=== PATIENT | male | born 1965 | race Caucasian/White ===

== ENCOUNTER 2018-01-07 21:04 | Emergency (ER) | payer OTHER ==
[~2018-01-07 21:04] MED LIST: ACETAMINOPHEN-H1 TA2 PO; BIAXIN500 MG PO; BP PILL; CLINDAMYCIN150 MG PO; HYDROCODONE BIT1 T11 PO; KEFLEX500 MG PO; LEVAQUIN750 M1 PO; LISINOPRIL10 M1 PO; MULTI VITAMINS1 TAB PO; Motrin,Rufen800 MG PO; NKHM; PRAVACHOL20 MG PO; PRILOSEC20 M2 PO; VICODIN 5-3001 EACH PO; VICODIN 5/500 505 MG PO; VITAMIN D50000 I3 PO
[2018-01-07 21:37] LABS: BASO # 0.1 10*3/uL (0.0-0.1); BASO % 0.4 % (0.0-1.0); EOS # 0.1 10*3/uL (0.0-0.4); EOS % 0.5 % (1.0-4.0); HEMOGLOBIN 13.1 g/dl (14.0-18.0); LYMPH # 1.3 10*3/uL (1.3-4.4); LYMPH % 9.7 % (27.0-41.0); MEAN CELL VOLUME 92.9 fl (80.0-94.0); MEAN CORPUSCULAR HGB CONC 34.5 g/dl (33.0-37.0); MEAN PLATELET VOLUME 9.1 fl (9.6-12.3); MONO # 0.8 10*3/uL (0.1-1.0); MONO % 5.8 % (3.0-9.0); NEUT # 11.2 10*3/uL (2.3-7.9); NEUT % 83.1 % (47.0-73.0); PLATELET COUNT AUTOMATED 262 10*3/uL (130-400); RED BLOOD COUNT 4.09 10*6/uL (4.50-5.90); RED CELL DISTRI WIDTH 13.2 % (0-14.5); WHITE BLOOD COUNT 13.5 10*3/uL (4.8-10.8)
[2018-01-07 21:52] LABS: ALBUMIN 3.6 gm/dl (3.1-4.5); ALKALINE PHOSPHATASE 63 U/L (45-117); BUN 14 mg/dl (7-24); CHLORIDE 100 mmol/L (98-107); CREATININE 0.87 mg/dL (0.70-1.30); POTASSIUM 3.6 mmol/L (3.5-5.1); SGOT/AST 25 IU/L (3-35); SGPT/ALT 34 U/L (12-78); SODIUM 136 mmol/L (136-145); TOTAL PROTEIN 7.3 gm/dL (6.4-8.2)
[2018-01-07 21:53] LABS: LIPASE 102 U/L (73-393)
[2018-01-08] MEDS ORDERED: ZOFRAN ODT4 MG SL (00:49)
[2018-01-08] MEDS ORDERED: NORCO 5-325 TA1 EACH PO (00:49)
== END 2018-01-08 01:18 | disposition home or self-care (01) ==
LOC: ED 21:04
PROVIDERS: Physician Assistant
DX: K52.9 Noninfective gastroenteritis and colitis, unspecified (principal); F17.200 Nicotine dependence, unspecified, uncomplicated; Z79.899 Other long term (current) drug therapy

== ENCOUNTER → 2021-02-20 | Outpatient (CLI) | payer BC ==
[~2021-02-20] MED LIST changes: +NORCO 5-325 TA1 EACH PO; +ZOFRAN ODT4 MG SL
== END | disposition home or self-care (01) ==
LOC: RAD 12:41
PROVIDERS: ATTEND Family Medicine
DX: M19.021 Primary osteoarthritis, right elbow (principal); M79.89 Other specified soft tissue disorders; M25.421 Effusion, right elbow

== ENCOUNTER → 2023-12-22 | Outpatient (CLI) | payer BC | END | disposition home or self-care (01) | LOC: ORTHO 00:45 | PROVIDERS: ATTEND Orthopaedic Surgery | DX: M25.762 Osteophyte, left knee (principal); M25.462 Effusion, left knee; M17.12 Unilateral primary osteoarthritis, left knee ==

== ENCOUNTER → 2024-03-23 | Outpatient (CLI) | payer BC ==
[2024-03-23 10:28] LABS: BASO # 0.1 10*3/uL (0.0-0.1); BASO % 1.2 % (0.0-1.0); EOS # 0.3 10*3/uL (0.0-0.4); EOS % 4.4 % (1.0-4.0); HEMATOCRIT 42.2 % (42.0-52.0); LYMPH # 1.1 10*3/uL (1.3-4.4); LYMPH % 14.3 % (27.0-41.0); MEAN CELL VOLUME 92.5 fl (80.0-94.0); MEAN CORPUSCULAR HGB 30.5 pg (27.0-31.0); MEAN CORPUSCULAR HGB CONC 32.9 g/dl (33.0-37.0); MEAN PLATELET VOLUME 8.8 fl (9.6-12.3); MONO # 0.4 10*3/uL (0.1-1.0); MONO % 5.3 % (3.0-9.0); NEUT # 5.8 10*3/uL (2.3-7.9); NEUT % 74.5 % (47.0-73.0); PLATELET COUNT AUTOMATED 364 10*3/uL (130-400); RED BLOOD COUNT 4.56 10*6/uL (4.50-5.90); RED CELL DISTRI WIDTH 13.1 % (0-14.5); WHITE BLOOD COUNT 7.7 10*3/uL (4.8-10.8)
[2024-03-23 10:50] LABS: FREE T4 1.49 ng/dl (0.89-1.76)
== END | disposition home or self-care (01) ==
LOC: LAB 10:10
PROVIDERS: Occupational Therapist; ATTEND Family Medicine
DX: E29.1 Testicular hypofunction (principal); D64.9 Anemia, unspecified

== ENCOUNTER → 2024-04-15 | Outpatient (CLI) | payer BC ==
[~2024-04-15] MED LIST changes: +ASPIRIN ADULT L81 M2 PO; +DOCUSATE SOD100 MG PO; +LISINOPRIL30 MG PO; +NEURONTIN400 MG PO; +NORVASC5 MG PO; +OMEPRAZOLE40 MG PO; +ONDANSETRON HYDR4 MG PO; +OXYCODONE-ACET1 EACH PO; +SILDENAFIL CITR50 MG PO; +VITAMIN D350 MCG PO; +[UNRECOGNIZED DRUG - OTHER] PO
== END | disposition home or self-care (01) ==
LOC: ORTHO 02:05
PROVIDERS: ATTEND Orthopaedic Surgery
DX: M25.462 Effusion, left knee (principal); M25.461 Effusion, right knee; Z47.1 Aftercare following joint replacement surgery

== ENCOUNTER → 2024-05-15 | Outpatient (CLI) | payer BC | END | disposition home or self-care (01) | LOC: ORTHO 00:23 | PROVIDERS: ATTEND Orthopaedic Surgery | DX: M25.462 Effusion, left knee (principal); Z47.1 Aftercare following joint replacement surgery ==

== ENCOUNTER → 2024-06-26 | Outpatient (CLI) | payer BC | END | disposition home or self-care (01) | LOC: ORTHO 03:02 | PROVIDERS: ATTEND Orthopaedic Surgery | DX: M25.562 Pain in left knee (principal); Z47.1 Aftercare following joint replacement surgery ==

== ENCOUNTER → 2024-10-07 | Outpatient (CLI) | payer BC | END | disposition home or self-care (01) | LOC: ORTHO 00:42 | PROVIDERS: ATTEND Orthopaedic Surgery | DX: R60.0 Localized edema (principal); M25.561 Pain in right knee; Z47.1 Aftercare following joint replacement surgery; Z96.653 Presence of artificial knee joint, bilateral ==

== ENCOUNTER 2025-03-06 08:52 | Inpatient (IN) | payer OTHER ==
[~2025-03-06] VITALS: Ht 187.9 cm; Wt 80.5 kg
[2025-03-06 09:00] VITALS: BP 134/83
[2025-03-06] MEDS ORDERED: IOHEXOL 300 MG/ML 100 ML VIAL IV ONE (09:40)
[2025-03-06] MEDS ORDERED: Ketorolac Tromethamine 15 MG/ML VIAL IV ONE (09:40)
[2025-03-06 09:48] LABS: BASO % 0.4 % (0.0-1.0); EOS # 0.2 10*3/uL (0.0-0.4); EOS % 1.7 % (1.0-4.0); HEMATOCRIT 36.4 % (42.0-52.0); MEAN CELL VOLUME 95.3 fl (80.0-94.0); MEAN CORPUSCULAR HGB 32.2 pg (27.0-31.0); MEAN CORPUSCULAR HGB CONC 33.8 g/dl (33.0-37.0); MONO # 0.7 10*3/uL (0.1-1.0); MONO % 7.3 % (3.0-9.0); NEUT # 7.2 10*3/uL (2.3-7.9); NEUT % 79.9 % (47.0-73.0); PLATELET COUNT AUTOMATED 233 10*3/uL (130-400); RED BLOOD COUNT 3.82 10*6/uL (4.50-5.90); RED CELL DISTRI WIDTH 13.3 % (0-14.5)
[2025-03-06 10:11] LABS: POTASSIUM 4.4 mmol/L (3.4-5.1); TOTAL PROTEIN 7.3 gm/dL (6.0-8.0)
[2025-03-06] MEDS ORDERED: Iodixanol 320 100 ML VIAL IV ONE (10:25)
[2025-03-06] MEDS ORDERED: Iodixanol 320 100 ML VIAL ONE (10:48)
[2025-03-06] MEDS ORDERED: BISACODYL 5 MG TAB PO PRN (12:35)
[2025-03-06] MEDS ORDERED: ACETAMINOPHEN 325 MG TAB PO PRN (12:35)
[2025-03-06] MEDS ORDERED: BISACODYL 10 MG SUPP R PRN (12:35)
[2025-03-06] MEDS ORDERED: Ondansetron Hydrochloride 4 MG/2 ML VIAL IV PRN (12:35)
[2025-03-06] MEDS ORDERED: Magnesium Hydroxide 30 ML UDC PO PRN (12:35)
[2025-03-06] MEDS ORDERED: ACETAMINOPHEN 650 MG SUPP R PRN (12:35)
[2025-03-06] MEDS ORDERED: TEMAZEPAM 15 MG CAP PO PRN (12:35)
[2025-03-06] MEDS ORDERED: MORPHINE Sulfate 2 MG/ML SYR IV PRN (12:35)
[2025-03-06] MEDS ORDERED: Piperacillin Sodium/Tazobact 50 ML IV SCH (14:00)
[2025-03-06 14:30] VITALS: BP 152/80
[2025-03-06] MEDS ORDERED: POWERADE 1 LITER PO ONE (14:51)
[2025-03-06] MEDS ORDERED: Polyethylene Glycol 3350 238 GM BOT PO ONE (15:00)
[2025-03-06] MEDS ORDERED: SODIUM CHLORIDE 0.9% 1,000 ML IV ONE (16:25)
[2025-03-06] MEDS ORDERED: SODIUM CHLORIDE 0.9% 1,000 ML IV SCH (16:30)
[2025-03-06] MEDS ORDERED: ERYTHROMYCIN 250 MG TAB PO SCH (18:00)
[2025-03-06 20:00] VITALS: BP 134/78
[2025-03-07] VITALS (9 sets, daily range): BP systolic 115–172; BP diastolic 65–99
[2025-03-07] MEDS ORDERED: ACETAMINOPHEN 100 ML IV ONE (07:15)
[2025-03-07] MEDS ORDERED: Lactated Ringer's Solution 1,000 ML IV ONE ×2 (07:15→09:55)
[2025-03-07] MEDS ORDERED: SODIUM CHLORIDE 0.9% 100 ML IV ONE (07:15)
[2025-03-07] MEDS ORDERED: BUPivacaine 0.5% 30 ML IV ONE (07:27)
[2025-03-07] MEDS ORDERED: HYDROmorphone Hydrochloride 1 ML IV ONE (07:55)
[2025-03-07] MEDS ORDERED: Nicotine 21 MG PATCH T SCH (10:00)
[2025-03-07] MEDS ORDERED: HYDROmorphONE Hydrochloride 0.5 MG/0.5 ML SYRINGE IV PRN (11:00)
[2025-03-07] MEDS ORDERED: HYDROmorphONE Hydrochloride 0.5 MG/0.5 ML SYRINGE ONE ×2 (11:25→11:36)
[2025-03-07] MEDS ORDERED: MORPHINE Sulfate 50 MG in SODIUM CHLORIDE 0.9% 45 ML IV SCH (11:30)
[2025-03-07 12:58] LABS: MEAN CORPUSCULAR HGB 32.3 pg (27.0-31.0); MEAN CORPUSCULAR HGB CONC 32.6 g/dl (33.0-37.0); MEAN PLATELET VOLUME 10.2 fl (9.6-12.3); PLATELET COUNT AUTOMATED 228 10*3/uL (130-400); RED BLOOD COUNT 3.93 10*6/uL (4.50-5.90); RED CELL DISTRI WIDTH 13.3 % (0-14.5); WHITE BLOOD COUNT 8.6 10*3/uL (4.8-10.8)
[2025-03-07 13:00] LABS: MANUAL DIFF REFLEX YES; MEAN CELL VOLUME 99.2 fl (80.0-94.0)
[2025-03-07 13:25] LABS: PLATELET SUFFICIENCY NORMAL (NORMAL); TOTAL CELLS COUNTED 100 #CELLS
[2025-03-07 13:29] LABS: ALKALINE PHOSPHATASE 59 U/L (46-116); CHLORIDE 104 mmol/L (98-107); CHOLESTEROL 172 mg/dL (<200); FREE T4 1.46 ng/dl (0.89-1.76); LDL CHOLESTEROL 73 mg/dL (9-159); POTASSIUM 4.6 mmol/L (3.4-5.1); SGPT/ALT 19 U/L (5-49); TOTAL PROTEIN 6.9 gm/dL (6.0-8.0); TRIGLYCERIDES 89 mg/dl (<150)
[2025-03-07 13:31] LABS: BUN 22 mg/dl (9-23)
[2025-03-07] MEDS ORDERED: fentaNYL CITRATE 100 MCG/2 ML VIAL IV ONE ×2 (17:20→18:48)
[2025-03-07 17:35] LABS: BASO % 0.2 % (0.0-1.0); EOS % 0.4 % (1.0-4.0); MEAN CORPUSCULAR HGB CONC 31.4 g/dl (33.0-37.0); MEAN PLATELET VOLUME 9.8 fl (9.6-12.3); MONO # 0.7 10*3/uL (0.1-1.0); MONO % 6.3 % (3.0-9.0); NEUT # 9.4 10*3/uL (2.3-7.9); NEUT % 88.3 % (47.0-73.0); PLATELET COUNT AUTOMATED 231 10*3/uL (130-400); RED BLOOD COUNT 4.12 10*6/uL (4.50-5.90); RED CELL DISTRI WIDTH 13.4 % (0-14.5); WHITE BLOOD COUNT 10.7 10*3/uL (4.8-10.8)
[2025-03-07 17:36] LABS: MEAN CELL VOLUME 101.9 fl (80.0-94.0)
[2025-03-07] MEDS ORDERED: ROCURONIUM BROMIDE 50 MG/5 ML SYRINGE IV ONE (18:48)
[2025-03-07] MEDS ORDERED: Ketamine Hydrochloride 50 MG/5 ML SYRINGE IV ONE (18:48)
[2025-03-07] MEDS ORDERED: SUGAMMADEX SODIUM 200 MG/2 ML VIAL IV ONE (18:48)
[2025-03-07] MEDS ORDERED: Lidocaine Hydrochloride 5 ML VIAL IV ONE (18:48)
[2025-03-07] MEDS ORDERED: dexmedeTOMIDine HCL 200 MCG/2 ML VIAL IV ONE (18:48)
[2025-03-07] MEDS ORDERED: Midazolam Hydrochloride 2 MG/2 ML VIAL IV ONE (18:48)
[2025-03-07] MEDS ORDERED: PROPOFOL 200 MG/20 ML VIAL IV ONE (18:48)
[2025-03-07] MEDS ORDERED: Ondansetron Hydrochloride 4 MG/2 ML VIAL IV ONE (18:48)
[2025-03-07] MEDS ORDERED: Dexamethasone Sodium Phospha 4 MG/ML VIAL IV ONE (18:48)
[2025-03-07] MEDS ORDERED: SEVOFLURANE 250 ML BOT INH ONE (18:48)
[2025-03-07] MEDS ORDERED: fentaNYL CITRATE 100 MCG/2 ML VIAL IV PRN (22:25)
[2025-03-08] VITALS: BP 129/76
[2025-03-08] MEDS ORDERED: SODIUM CHLORIDE 0.9% 1,000 ML IV SCH
[2025-03-08] MEDS ORDERED: diphenhydrAMINE hydrochloride 50 MG/ML VIAL IV ONE (02:45)
[2025-03-08 06:43] LABS: BASO % 0.2 % (0.0-1.0); EOS # 0.1 10*3/uL (0.0-0.4); EOS % 0.8 % (1.0-4.0); HEMATOCRIT 37.3 % (42.0-52.0); MEAN CELL VOLUME 99.5 fl (80.0-94.0); MEAN CORPUSCULAR HGB 32.3 pg (27.0-31.0); MEAN CORPUSCULAR HGB CONC 32.4 g/dl (33.0-37.0); MEAN PLATELET VOLUME 10.4 fl (9.6-12.3); MONO # 0.7 10*3/uL (0.1-1.0); MONO % 8.1 % (3.0-9.0); NEUT # 6.6 10*3/uL (2.3-7.9); NEUT % 76.2 % (47.0-73.0); PLATELET COUNT AUTOMATED 246 10*3/uL (130-400); RED BLOOD COUNT 3.75 10*6/uL (4.50-5.90); RED CELL DISTRI WIDTH 13.1 % (0-14.5); WHITE BLOOD COUNT 8.6 10*3/uL (4.8-10.8)
[2025-03-08 07:00] LABS: CHLORIDE 105 mmol/L (98-107); POTASSIUM 4.1 mmol/L (3.4-5.1)
[2025-03-08 07:02] LABS: BUN 12 mg/dl (9-23)
[2025-03-08 08:00] VITALS: BP 143/89
[2025-03-08] MEDS ORDERED: GABAPENTIN 400 MG CAP PO SCH (08:00)
[2025-03-08] MEDS ORDERED: SODIUM CHLORIDE 0.9% 50 ML BAG IV ONE (08:24)
[2025-03-08] MEDS ORDERED: MORPHINE SULFATE 10 MG/1 ML IV ONE (08:24)
[2025-03-08] MEDS ORDERED: Cholecalciferol 2,000 UNIT TABLET (50 MCG) PO SCH (10:00)
[2025-03-08] MEDS ORDERED: LISINOPRIL 10 MG TAB PO SCH (10:00)
[2025-03-08] MEDS ORDERED: amLODIPine besylate 5 MG TAB PO SCH (10:00)
[2025-03-08 12:00] VITALS: BP 137/80
[2025-03-08] MEDS ORDERED: OXYCODONE HCL (IR) 5 MG TAB PO PRN (13:45)
[2025-03-08 16:00] VITALS: BP 115/70
[2025-03-08 20:00] VITALS: BP 113/74
[2025-03-09] VITALS: BP 138/83
[2025-03-09 01:05] LABS: BILIRUBIN Negative (Negative); BLOOD Negative (Negative); CLARITY Clear (Clear); COLOR Orange (Yellow); GLUCOSE Negative (Negative); KETONE Negative (Negative); LEUKO ESTERASE Negative (Negative); NITRITE Negative (Negative); UROBILINOGEN 0.2 E.U./dl (0.0-1.0)
[2025-03-09] MEDS ORDERED: OMEPRAZOLE 20 MG CAP PO SCH (06:00)
[2025-03-09 06:16] LABS: BASO % 0.7 % (0.0-1.0); EOS # 0.2 10*3/uL (0.0-0.4); HEMATOCRIT 34.1 % (42.0-52.0); MEAN CELL VOLUME 98.6 fl (80.0-94.0); MEAN CORPUSCULAR HGB 31.8 pg (27.0-31.0); MEAN CORPUSCULAR HGB CONC 32.3 g/dl (33.0-37.0); MONO # 0.5 10*3/uL (0.1-1.0); MONO % 9.1 % (3.0-9.0); NEUT # 3.7 10*3/uL (2.3-7.9); NEUT % 65.1 % (47.0-73.0); PLATELET COUNT AUTOMATED 231 10*3/uL (130-400); RED BLOOD COUNT 3.46 10*6/uL (4.50-5.90); RED CELL DISTRI WIDTH 13.2 % (0-14.5); WHITE BLOOD COUNT 5.7 10*3/uL (4.8-10.8)
[2025-03-09 08:00] VITALS: BP 129/77
[2025-03-09] MEDS ORDERED: GUAIFENESIN 600 MG TAB ER PO SCH (10:00)
[2025-03-09 12:00] VITALS: BP 164/68
[2025-03-09] MEDS ORDERED: Albuterol Sulf/Ipratropium 3 ML VIAL NEB PRN (12:05)
[2025-03-09 16:00] VITALS: BP 130/83
[2025-03-09] MEDS ORDERED: OXYCODONE HCL (IR) 5 MG TAB PO PRN (17:00)
[2025-03-09 20:00] VITALS: BP 114/59
[2025-03-10] VITALS: BP 121/85
[2025-03-10 06:42] LABS: BASO # 0.1 10*3/uL (0.0-0.1); BASO % 1.4 % (0.0-1.0); EOS # 0.3 10*3/uL (0.0-0.4); EOS % 5.9 % (1.0-4.0); HEMATOCRIT 34.2 % (42.0-52.0); MEAN CELL VOLUME 97.4 fl (80.0-94.0); MEAN CORPUSCULAR HGB 31.3 pg (27.0-31.0); MEAN CORPUSCULAR HGB CONC 32.2 g/dl (33.0-37.0); MEAN PLATELET VOLUME 9.7 fl (9.6-12.3); MONO # 0.6 10*3/uL (0.1-1.0); MONO % 11.1 % (3.0-9.0); NEUT # 3.1 10*3/uL (2.3-7.9); NEUT % 63.2 % (47.0-73.0); PLATELET COUNT AUTOMATED 241 10*3/uL (130-400); RED BLOOD COUNT 3.51 10*6/uL (4.50-5.90); RED CELL DISTRI WIDTH 13.1 % (0-14.5); WHITE BLOOD COUNT 4.9 10*3/uL (4.8-10.8)
[2025-03-10 07:10] LABS: BUN 8 mg/dl (9-23); CHLORIDE 103 mmol/L (98-107); POTASSIUM 3.8 mmol/L (3.4-5.1)
[2025-03-10 08:00] VITALS: BP 132/78
[2025-03-10] MEDS ORDERED: MUCUS RELIEF E600 MG PO (12:41)
[2025-03-10] MEDS ORDERED: OXYCODONE HCL5 MG PO (12:41)
== END 2025-03-10 13:10 | disposition home or self-care (01) | DRG 329 ==
LOC: ED 08:52 → 5E 12:12 → EDHOLD 12:12 → 5E 13:32
PROVIDERS: Emergency Medicine; Internal Medicine; ADMIT Family Medicine; ATTEND Family Medicine
PROC: 0DTF4ZZ Resection of Right Large Intestine, Percutaneous Endoscopic Approach (ICD-10-PCS; principal; 2025-03-07)
PROC: 0FB04ZX Excision of Liver, Percutaneous Endoscopic Approach, Diagnostic (ICD-10-PCS; 2025-03-07)
DX: K63.89 Other specified diseases of intestine (principal); N17.0 Acute kidney failure with tubular necrosis; C79.89 Secondary malignant neoplasm of other specified sites; E87.1 Hypo-osmolality and hyponatremia; K76.9 Liver disease, unspecified; K21.9 Gastro-esophageal reflux disease without esophagitis; E78.5 Hyperlipidemia, unspecified; I10 Essential (primary) hypertension; M17.0 Bilateral primary osteoarthritis of knee; D53.9 Nutritional anemia, unspecified; N40.0 Benign prostatic hyperplasia without lower urinary tract symptoms; E55.9 Vitamin D deficiency, unspecified; F17.200 Nicotine dependence, unspecified, uncomplicated; Z83.3 Family history of diabetes mellitus